=== PATIENT | male | born 1960 | race Caucasian/White ===

== ENCOUNTER 2020-12-18 08:37 | Emergency (ER) | payer BC ==
[~2020-12-18] VITALS: Ht 177.8 cm; Wt 104.3 kg
[2020-12-18] MEDS ORDERED: ACETAMINOPHEN 325 MG TAB PO PRN (10:15)
[2020-12-18] MEDS ORDERED: ACETAMINOPHEN 325 MG TAB ONE (10:53)
[2020-12-18] MEDS ORDERED: IBUPROFEN400 MG PO (11:49)
[2020-12-18 12:01] VITALS: BP_SYST 5
[2020-12-18] MEDS ORDERED: VOLTAREN100 GM TOP (12:02)
== END 2020-12-18 12:07 | disposition home or self-care (01) ==
LOC: FSED 09:20
DX: R07.89 Other chest pain (principal); M79.671 Pain in right foot; M19.071 Primary osteoarthritis, right ankle and foot
CPT/HCPCS: 71045; 71260; 80053; 82553; 84484; 85025; 85379; 93005; 99284

== ENCOUNTER 2021-07-07 11:01 | Emergency (ER) | payer BC ==
[~2021-07-07] VITALS: Ht 177.8 cm; Wt 99.8 kg
[~2021-07-07 11:01] MED LIST: IBUPROFEN400 MG PO; VOLTAREN100 GM TOP
[2021-07-07] MEDS ORDERED: ULTRAM 50MG50 MG PO (11:44)
== END 2021-07-07 12:07 | disposition home or self-care (01) ==
LOC: FSED 11:29
DX: S80.01XA Contusion of right knee, initial encounter (principal); M25.461 Effusion, right knee; W10.8XXA Fall (on) (from) other stairs and steps, initial encounter; Y93.01 Activity, walking, marching and hiking; Y99.0 Civilian activity done for income or pay
CPT/HCPCS: 99283